=== PATIENT | female | born 1980 | race Caucasian/White ===

== ENCOUNTER 2022-04-22 14:50 | Outpatient (CLI) | payer OTHER, SELFPAY ==
--- NOTE | 2022-04-22 15:00 | CRLHL7_ITS ---
For Patients: As a result of the Century Cures Act, medical imaging exams and procedure reports are released immediately into your electronic medical record. You may view this report before your referring provider. If you have questions, please contact your health care provider. BILATERAL SCREENING MAMMOGRAM WITH COMPUTER-AIDED DETECTION TECHNIQUE: CC and MLO views were obtained. These mammographic images have been obtained using full-field digital technique. These mammographic images were interpreted with the benefit of computer-aided detection. COMPARISON FILM: 04/16/21. FINDINGS: The breasts are heterogeneously dense, which may obscure small masses IMPRESSION: There is no radiographic evidence for malignancy. ASSESSMENT: BI-RADS Category 1: Negative RECOMMENDATION: Routine screening mammogram in 1 year. A lay language report of this examination will be provided to the patient. Marco Antonio Paul M.D. Diagnostic Radiologist [email or web address] MEREDITH/Dictated by: Marco Antonio Paul MD @ 04/23/2022 9:12:00 AM (Electronically Signed)
== END 2022-04-22 14:51 | disposition home or self-care (01) ==
LOC: MAMMO 14:51
PROVIDERS: Visit Provider Physician Assistant
DX: Z12.31 Encounter for screening mammogram for malignant neoplasm of breast (principal); R92.2 Inconclusive mammogram
CPT/HCPCS: 77067

== ENCOUNTER 2023-05-06 08:10 | Outpatient (CLI) | payer OTHER, SELFPAY ==
--- NOTE | 2023-05-06 08:15 | CRLHL7_ITS ---
For Patients: As a result of the Century Cures Act, medical imaging exams and procedure reports are released immediately into your electronic medical record. You may view this report before your referring provider. If you have questions, please contact your health care provider. BILATERAL SCREENING MAMMOGRAM WITH COMPUTER-AIDED DETECTION AND TOMOSYNTHESIS TECHNIQUE: CC and MLO views were obtained. These mammographic images have been obtained using full-field digital technique. These mammographic images were interpreted with the benefit of computer-aided detection. Breast Tomosynthesis was used in this interpretation. COMPARISON FILM: 04-22-22, 04-16-21. FINDINGS: The breasts are heterogeneously dense, which may obscure small masses IMPRESSION: There is no radiographic evidence for malignancy. ASSESSMENT: BI-RADS Category 2: Benign RECOMMENDATION: Routine screening mammogram in 1 year. A lay language report of this examination will be provided to the patient. Marco Antonio Paul M.D. Diagnostic Radiologist [email or web address] [place]ITH/Dictated by: Marco Antonio Paul MD @ 05/06/2023 12:32:00 PM (Electronically Signed)
== END 2023-05-06 08:11 | disposition home or self-care (01) ==
LOC: MAMMO 08:11
PROVIDERS: PCP Physician Assistant Medical; Visit Provider Obstetrics & Gynecology
DX: Z12.31 Encounter for screening mammogram for malignant neoplasm of breast (principal); R92.2 Inconclusive mammogram
CPT/HCPCS: 77063; 77067

== ENCOUNTER 2023-07-22 07:18 | Outpatient (CLI) | payer OTHER, SELFPAY | END 2023-07-22 07:19 | disposition home or self-care (01) | PROVIDERS: PCP Family Medicine; Visit Provider Family Medicine | DX: Z00.00 Encounter for general adult medical examination without abnormal findings (principal); R03.0 Elevated blood-pressure reading, without diagnosis of hypertension; Z13.6 Encounter for screening for cardiovascular disorders; Z13.1 Encounter for screening for diabetes mellitus; Z11.59 Encounter for screening for other viral diseases | CPT/HCPCS: 80053; 80061; 86803 ==

== ENCOUNTER 2024-06-02 08:10 | Outpatient (CLI) | payer OTHER, SELFPAY ==
--- OUTSIDE RECORDS SUMMARY | 2024-06-02 08:12 | XMS_ITS | Clinical Summary ---
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 21 Capsule 08/17/2022 Active codeine-guaiFENesin (ROBITUSSIN AC) 10-100 mg/5 mL liquidIndications:B clarachitis Take 10 mL by mouth every bedtime if needed for Cough 80 mL 08/17/2022 Active albuterol HFA (PRO-AIR; VENTOLIN; PROVENTIL) 90 mcg/actuation inhalerIndications: Bronchitis Inhale 1-2 Puffs by mouth every 4 hours if needed for Shortness Of Breath (or cough). 8.5 g 08/17/2022 Active meloxicam 15 mg tabletIndications:M etatarsalgia, left foot Take 1 Tablet (15 mg) by mouth once daily. 30 Tablet 1 04/22/2023 Active Social History Tobacco Use Types Packs/Day Years Used Date Smoking Tobacco: Never Smokeless Tobacco: Never Tobacco Cessation:Counseling Given: Not Answered Sex and Gender Information Value Date Recorded Sex Assigned at Not on file Gender Identity Not on file Sexual Orientation Not on file Obstetrics History Last Filed Vital Signs Vital Sign Reading Time Taken Comments Blood Pressure 147/102 08/17/2022 10:08 AM APPLICATIONS ENGINEER Pulse 76 08/17/2022 10:08 AM APPLICATIONS ENGINEER Temperature 37.2 C (98.9 F) 08/17/2022 10:08 AM APPLICATIONS ENGINEER Respiratory Rate 22 08/17/2022 10:08 AM APPLICATIONS ENGINEER Oxygen Saturation 99% 08/17/2022 10:08 AM APPLICATIONS ENGINEER Inhaled Oxygen Concentration - - Weight - - Height - - Body Mass Index - - Plan of Treatment Health Maintenance Due Date Last Done Comments Tdap 11/05/1990 Depression screening for age 12+ 1991 HIV for age 15-65 11/05/1994 BMI (ht and wt on same day) for age 18+ 11/05/1997 Hepatitis C screening for age 18-79 11/05/1997 Tetanus booster 1999 COVID-19 vaccine series (2023- season) 2024 Influenza for age 9-49 03/07/2024 Pap test for age 21-65 09/25/2025 , 09/25/2022, 04/16/2021, Additional history exists Pneumococcal series for age 6-64 Aged Out No longer eligible based on patient's age to complete this topic Procedures Procedure Name Priority Date/Time Associated Diagnosis Comments HPV HIGH RISK Routine 09/25/2022 1:00 PM CDT from Last 3 Months or Most Recently Relevant to Health Maintenance Results * (ABNORMAL) HPV HIGH RISK (09/25/2022 1:00 PM CDT) TYPE 16 Positive(A) Negative 09/30/2022 10:52 AM CDT [facility] TYPE 18 Negative Negative 09/30/2022 10:52 AM CDT [facility] OTHER HIGH RISK TYPES Positive(A) Negative 09/30/2022 10:52 AM CDT [facility] Other (Cervical) 09/25/2022 1:00 PM CDT 09/27/2022 10:07 AM CDT [facility] - 09/30/2022 10:52 AM CDT Specimen is positive for HPV type 16 DNA and the DNA of any one of, or combination of, the following high risk HPV types: 31, 33, 35, 39, 45, 51, 52, 56, 58,59, 66, 68. HPV type 18 DNA was undetectable or below the pre-set threshold. Methodology: Stephenie Abiola 4800 HPV Test Karlee Coates MD MICROBIOLOGY [facility] [address] [place] [address], from Last 3 Months or Most Recently Relevant to Health Maintenance Care Teams Steam Drier Operator Relationship Specialty Start Date End Date Pcp, No . PCP - General 08/17/22
--- NOTE | 2024-06-02 08:15 | CRLHL7_ITS ---
For Patients: As a result of the Century Cures Act, medical imaging exams and procedure reports are released immediately into your electronic medical record. You may view this report before your referring provider. If you have questions, please contact your health care provider. BILATERAL SCREENING MAMMOGRAM WITH COMPUTER-AIDED DETECTION AND TOMOSYNTHESIS TECHNIQUE: CC and MLO views were obtained. These mammographic images have been obtained using full-field digital technique. These mammographic images were interpreted with the benefit of computer-aided detection. Breast Tomosynthesis was used in this interpretation. COMPARISON FILM: 05/06/23, 04/22/22, 04/16/21. FINDINGS: There are scattered areas of fibroglandular density. IMPRESSION: There is no radiographic evidence for malignancy. ASSESSMENT: BI-RADS Category 2: Benign RECOMMENDATION: Routine screening mammogram in 1 year. A lay language report of this examination will be provided to the patient. Marco Antonio Paul M.D. Diagnostic Radiologist [email or web address] SP/Dictated by: Marco Antonio Paul MD @ 06/02/2024 9:12:00 AM (Electronically Signed)
== END 2024-06-02 08:11 | disposition home or self-care (01) ==
LOC: MAMMO 08:10
PROVIDERS: PCP Family Medicine; Visit Provider Family Medicine
DX: Z12.31 Encounter for screening mammogram for malignant neoplasm of breast (principal)
CPT/HCPCS: 77063; 77067

== ENCOUNTER 2024-10-14 14:33 | Outpatient (CLI) | payer OTHER, SELFPAY | END 2024-10-14 14:34 | disposition home or self-care (01) | PROVIDERS: PCP Family Medicine; Visit Provider Family Medicine | DX: R03.0 Elevated blood-pressure reading, without diagnosis of hypertension (principal); B00.1 Herpesviral vesicular dermatitis; Z13.6 Encounter for screening for cardiovascular disorders | CPT/HCPCS: 80053; 80061; 82043; 82570 ==

== ENCOUNTER 2024-12-13 09:14 | Outpatient (CLI) | payer OTHER, SELFPAY ==
[2024-12-18 05:43] LABS: HPV Source Cervical; HPV, High Risk by TMA Not Detected
== END 2024-12-13 09:15 | disposition home or self-care (01) ==
PROVIDERS: PCP Family Medicine; Visit Provider Obstetrics & Gynecology
DX: N87.1 Moderate cervical dysplasia (principal); Z11.51 Encounter for screening for human papillomavirus (HPV); Z12.4 Encounter for screening for malignant neoplasm of cervix
CPT/HCPCS: 87624; 87625; 88141; 88142